=== PATIENT | male | born 1965 | race American Indian/Alaskan Native ===

== ENCOUNTER 2021-01-07 01:34 | Inpatient (IN) | payer MEDICAID ==
[~2021-01-07] VITALS: Ht 188 cm; Wt 122.0 kg
[~2021-01-07 01:34] MED LIST: ASPI-1 PO; FISH1CAP15 PO; HYDR-4353 PO; LORA1TAB PO; LOSA50TA3 PO; MULT-66 PO; NORT25CA5 PO; OMEP20TA23 PO; SIMV10TA98 PO
[2021-01-07] MEDS ORDERED: normal saline 1000ML IV soln IVB ONE (01:35)
[2021-01-07 02:16] LABS: BASOPHILS # (AUTO) 0.1 X10'3 (0-0.2); BASOPHILS % (AUTO) 0.4 % (0-1); EOSINOPHILS # (AUTO) 0.2 X10'3 (0-0.9); EOSINOPHILS % (AUTO) 1.2 % (0-6); HEMATOCRIT 42.3 % (42.0-52.0); HEMOGLOBIN 14.2 g/dl (14.0-17.9); LYMPHOCYTES # (AUTO) 2.6 X10'3 (1.1-4.8); LYMPHOCYTES % (AUTO) 16.9 % (21-51); MEAN CORPUSCULAR HEMOGLOBIN 29.2 PG (27.0-31.0); MEAN CORPUSCULAR HGB CONC 33.6 g/dL (33.0-36.5); MEAN CORPUSCULAR VOLUME 87.1 FL (78-98); MEAN PLATELET VOLUME 9.9 FL (7.4-10.4); MONOCYTES # (AUTO) 0.9 X10'3 (0-0.9); MONOCYTES % (AUTO) 5.9 % (2-12); NEUTROPHILS # (AUTO) 11.7 X10'3 (1.8-7.7); NEUTROPHILS % (AUTO) 75.6 % (42-75); PLATELET COUNT 373 X10'3 (140-440); RED BLOOD COUNT 4.86 X10'6 (4.70-6.10); RED CELL DISTRIBUTION WIDTH 14.5 % (11.5-14.5); WHITE BLOOD COUNT 15.4 X10'3 (4.5-11.0)
[2021-01-07] MEDS ORDERED: normal saline 1000ML IV soln IV ONE (02:30)
[2021-01-07] MEDS ORDERED: CefTRIAXone 2gm/D5W 50ml BAG 50 ML IV ONE (02:30)
[2021-01-07 02:34] LABS: ALANINE AMINOTRANSFERASE 29 U/L (12-78); ALBUMIN 3.4 G/DL (3.4-5.0); ALBUMIN/GLOBULIN RATIO 0.8 (1.1-1.5); ALKALINE PHOSPHATASE 90 IU/L (46-116); ANION GAP 12 (8-16); ASPARTATE AMINO TRANSFERASE 23 U/L (10-37); BILIRUBIN,TOTAL 0.6 MG/DL (0.1-1.0); BLOOD UREA NITROGEN 13 MG/DL (7-18); BUN/CREATININE RATIO 9.5 (5.4-32.0); CHLORIDE 100 MMOL/L (99-107); CKMB RELATIVE INDEX 1.8 RATIO (0-2.5); CREATINE KINASE 243 U/L (39-308); CREATININE 1.37 MG/DL (0.60-1.10); ETHANOL < 0.010 GM/DL (0.0-0.010); FERRITIN 62 NG/ML (26-388); GLUCOSE 126 MG/DL (70-104); LACTATE DEHYDROGENASE 222 U/L (85-227); SODIUM 140 MMOL/L (135-145); TOTAL CARBON DIOXIDE 28.3 MMOL/L (24-32); TOTAL PROTEIN 7.7 G/DL (6.4-8.2); TROPONIN I < 0.04 NG/ML (0.0-0.05); eGFR 54 ML/MIN
[2021-01-07 02:40] LABS: POTASSIUM 2.4 MMOL/L (3.5-5.1)
[2021-01-07 02:47] LABS: ABG HCO3 23.6 mmol/L (22.0-26.0); ABG OXYGEN SATURATION 95.3 % (94-97); ABG PCO2 (T) 35.4 mmHg (35.0-48.0); ABG PO2 (T) 74.1 mmHg (75.0-100.0); ALLEN'S TEST POSITIVE; FCOHb 1.4 % (0.0-3.9); PATIENT TEMPERATURE 36.8; TOTAL HEMOGLOBIN 14.6 G/dl (14.0-18.0)
[2021-01-07] MEDS ORDERED: potassium Cl 10 mEq/100mL bag IV ONE (02:50)
[2021-01-07] MEDS ORDERED: potassium Cl 20 mEq SR tablet PO ONE (02:50)
[2021-01-07] MEDS ORDERED: magnesium Cl slow-release 64mg tablet PO PRN (02:55)
[2021-01-07] MEDS ORDERED: potassium Cl 40MEQ/1/2NS 520ml 520 ML IV PRN ×2 (02:55)
[2021-01-07] MEDS ORDERED: ondansetron/PF 4mg/2ml inj IV PRN (02:55)
[2021-01-07] MEDS ORDERED: magnesium 4gm in 100ml NS 100 ML IV PRN (02:55)
[2021-01-07] MEDS ORDERED: mag hydrox/Alum hydrox/simeth 30ml oral suspension PO PRN (02:55)
[2021-01-07] MEDS ORDERED: magnesium 2GM in 50ml NS 50 ML IV PRN (02:55)
[2021-01-07] MEDS ORDERED: magnesium hydroxide 30ml (MOM) UD suspension PO PRN (02:55)
[2021-01-07] MEDS ORDERED: acetaminophen 325mg tablet PO PRN (02:55)
[2021-01-07] MEDS: magnesium 2GM in 50ml NS 50 ML IV SCH ×2 (03:00→06:48)
--- NOTE | 2021-01-07 03:00 | NUR ---
Pt continues to get up out of bed, is moving around like uncontrolable muscle movements. Pt is unreasonable and when asked to stay in bed for his own safety states "don't count on it".
--- NOTE | 2021-01-07 03:28 | NUR ---
Pt ripped out his IV, pulled off all cords and found in the middle of the room moving around irratically. Pt states he hurts and feels horrible but refusing to cooperate with care.
[2021-01-07] MEDS ORDERED: LORazepam 2 mg/ml vial IV ONE (03:35)
[2021-01-07] MEDS ORDERED: LORazepam 2 mg/ml vial IM ONE (04:30)
[2021-01-07] MEDS ORDERED: haloperidol lactate 5mg/ml inj IM ONE (04:30)
[2021-01-07] MEDS ORDERED: diphenhydrAMINE 50 mg/ml inj IM ONE (04:30)
--- NOTE | 2021-01-07 04:45 | NUR ---
Received report from ZAYRA Ruff. Awaiting patient arrival to the floor.
--- NOTE | 2021-01-07 05:00 | NUR ---
Patient arrived to the floor via gurney accompanied by SIZE MARKER Elzbieta. Placed in room 4008, close to nurses' station. Patient confused, oriented only to self, restless and twitchy, but snoring in bed. Vital signs stable at Temp 98.3 F, 95 HR, 20 RR, 97% room air, and 134/50 BP (left arm). Unable to do majority of physical assessment due to patient's condition; unable to answer questions. IVF infusing per MD order. Bed alarm on and audible. Will continue to monitor.
[2021-01-07 06:00] VITALS: BP 134/74
[2021-01-07] MEDS: normal saline 1000ml 1,000 ML IV SCH ×2 (06:48→17:44)
--- NOTE | 2021-01-07 06:58 | NUR ---
Patient in room [facility]TH[facility] 4008. I have received report from Ruth Ann IVERSON and had the opportunity to ask questions and assume patient care.
[2021-01-07] MEDS: K and/or MAG REPLACEMENT MC SCH ×2 (08:00→20:00)
[2021-01-07] MEDS ORDERED: HYDR-3973 PO (09:20)
[2021-01-07] MEDS ORDERED: CLON-330 PO (09:20)
[2021-01-07] MEDS ORDERED: DULO30CA52 PO (09:20)
[2021-01-07] MEDS ORDERED: TRAZ-251 PO (09:20)
[2021-01-07] MEDS ORDERED: ALBU8HFA IH (09:20)
[2021-01-07] MEDS ORDERED: SIMV10TA98 PO (09:20)
[2021-01-07] MEDS: vancomycin/NS 1 GM ADD-VANTAGE 250 ML IV SCH ×3 (09:43→20:21)
[2021-01-07 10:22] LABS: CLARITY,URINE CLEAR (Clear); COLOR,URINE YELLOW (Yellow); GLUCOSE, URINE NEGATIVE (Neg); KETONES,URINE NEGATIVE (Neg); LEUKOCYTE ESTERASE ,URINE NEGATIVE (Neg); NITRITES, URINE NEGATIVE (Neg); OCCULT BLOOD,URINE NEGATIVE (Neg); PROTEIN,URINE NEGATIVE (Neg); UROBILINOGEN,URINE 0.2 E.U/dL (0.2-1.0)
[2021-01-07 10:28] LABS: UA COLLECTION TYPE NON-SPECIFIED
[2021-01-07 10:39] LABS: URINE AMPHETAMINE SCREEN POSITIVE (Neg); URINE BARBITUATE SCREEN NEGATIVE (Neg); URINE BENZODIAZEPINES SCREEN NEGATIVE (Neg); URINE CANNABINOID SCREEN NEGATIVE (Neg); URINE COCAINE SCREEN NEGATIVE (Neg); URINE METHADONE SCREEN NEGATIVE (Neg); URINE OPIATE SCREEN POSITIVE (Neg); URINE PHENCYCLIDINE SCREEN NEGATIVE (Neg)
[2021-01-07 10:47] LABS: MAGNESIUM 2.3 MG/DL (1.5-2.4)
[2021-01-07 10:48] LABS: POTASSIUM 2.6 MMOL/L (3.5-5.1)
--- NOTE | 2021-01-07 10:56 | NUR ---
AT 1056 PT. WAS ABLE TO COMMUNICATE AND TAKE ORAL MEDS OF POTASSIUM CHLORIDE AL STUDENT NURSE
--- NOTE | 2021-01-07 11:06 | NUR ---
Page Sent PAGER ID: [phone] MESSAGE: MARK [id number] [address]IT[address] KEVIN...CRITICAL LAB POTASSIUM 2.6...REPLACING PER PROTOCOL
--- NOTE | 2021-01-07 12:30 | NUR ---
Patient keeps bending arm and medication was administered late. Medication did not scan at time of administration
[2021-01-07 15:00] VITALS: BP 170/79
[2021-01-07] MEDS ORDERED: Permethrin 1% 59ml topical rinse TP ONE (15:55)
[2021-01-07] MEDS ORDERED: albuterol 2.5 MG/3 ML nebule NEB PRN (15:55)
[2021-01-07] MEDS ORDERED: traZODone 50mg tablet PO PRN (15:55)
[2021-01-07] MEDS ORDERED: cloNIDine 0.1 mg tablet PO PRN (15:55)
[2021-01-07] MEDS ORDERED: Permethrin Cream 60gm TP ONE (15:55)
[2021-01-07] MEDS: potassium Cl 20 mEq SR tablet PO PRN ×2 (17:44→21:33)
[2021-01-07 18:00] VITALS: BP 121/61
--- NOTE | 2021-01-07 18:38 | NUR ---
Problems reprioritized. Patient report given, questions answered & plan of care reviewed with Shelly IVERSON.
[2021-01-07] MEDS: lactobacillus rhamnosus 10,000 MMU CELLS/CAPSULE PO SCH (20:21)
[2021-01-07] MEDS: HYDROcodone/acetaminophen 10/325mg tab PO PRN (20:22)
[2021-01-07 22:00] VITALS: BP 134/68
[2021-01-08] MEDS: potassium Cl 20 mEq SR tablet PO PRN ×4 (01:07→21:33)
[2021-01-08] MEDS: normal saline 1000ml 1,000 ML IV SCH ×3 (03:28→18:55)
[2021-01-08] MEDS: HYDROcodone/acetaminophen 10/325mg tab PO PRN (04:46)
[2021-01-08 06:00] VITALS: BP 120/67
--- NOTE | 2021-01-08 06:21 | NUR ---
Problems reprioritized. Patient report given, questions answered & plan of care reviewed with ZAYRA STARR.
--- NOTE | 2021-01-08 06:30 | NUR ---
Patient in room ORTH[facility] 4008. I have received report from Knadice IVERSON and had the opportunity to ask questions and assume patient care.
[2021-01-08] MEDS: CefTRIAXone/D5W-Rocephin 1gm 50 ML IV SCH (07:34)
[2021-01-08] MEDS: HYDROcodone/acetaminophen 5mg/325mg tablet PO PRN ×2 (07:35→21:34)
[2021-01-08] MEDS: duloxetine 30mg CAPSULE.DR PO SCH (07:36)
[2021-01-08] MEDS: atorvastatin 10mg tablet PO SCH (07:36)
[2021-01-08] MEDS: lactobacillus rhamnosus 10,000 MMU CELLS/CAPSULE PO SCH ×2 (07:36→21:33)
[2021-01-08] MEDS: K and/or MAG REPLACEMENT MC SCH ×2 (08:00→20:00)
[2021-01-08 08:08] LABS: BASOPHILS # (AUTO) 0.1 X10'3 (0-0.2); BASOPHILS % (AUTO) 1.4 % (0-1); EOSINOPHILS # (AUTO) 0.4 X10'3 (0-0.9); HEMATOCRIT 36.8 % (42.0-52.0); HEMOGLOBIN 12.5 g/dl (14.0-17.9); LYMPHOCYTES # (AUTO) 3.6 X10'3 (1.1-4.8); LYMPHOCYTES % (AUTO) 41.6 % (21-51); MEAN CORPUSCULAR HEMOGLOBIN 29.5 PG (27.0-31.0); MEAN CORPUSCULAR HGB CONC 33.9 g/dL (33.0-36.5); MEAN CORPUSCULAR VOLUME 86.9 FL (78-98); MEAN PLATELET VOLUME 9.8 FL (7.4-10.4); MONOCYTES # (AUTO) 0.6 X10'3 (0-0.9); MONOCYTES % (AUTO) 7.5 % (2-12); NEUTROPHILS # (AUTO) 3.8 X10'3 (1.8-7.7); NEUTROPHILS % (AUTO) 44.5 % (42-75); PLATELET COUNT 341 X10'3 (140-440); RED BLOOD COUNT 4.24 X10'6 (4.70-6.10); RED CELL DISTRIBUTION WIDTH 14.5 % (11.5-14.5); WHITE BLOOD COUNT 8.6 X10'3 (4.5-11.0)
[2021-01-08 08:16] LABS: ALANINE AMINOTRANSFERASE 23 U/L (12-78); ALBUMIN 2.4 G/DL (3.4-5.0); ALBUMIN/GLOBULIN RATIO 0.7 (1.1-1.5); ALKALINE PHOSPHATASE 68 IU/L (46-116); ANION GAP 9 (8-16); ASPARTATE AMINO TRANSFERASE 17 U/L (10-37); BILIRUBIN,TOTAL 0.3 MG/DL (0.1-1.0); BLOOD UREA NITROGEN 7 MG/DL (7-18); BUN/CREATININE RATIO 13.5 (5.4-32.0); CALCIUM 7.9 MG/DL (8.5-10.1); CHLORIDE 110 MMOL/L (99-107); CREATININE 0.52 MG/DL (0.60-1.10); GLUCOSE 99 MG/DL (70-104); MAGNESIUM 1.7 MG/DL (1.5-2.4); SODIUM 145 MMOL/L (135-145); TOTAL CARBON DIOXIDE 25.9 MMOL/L (24-32); TOTAL PROTEIN 5.8 G/DL (6.4-8.2); eGFR > 90 ML/MIN
[2021-01-08 08:19] LABS: POTASSIUM 2.9 MMOL/L (3.5-5.1)
--- NOTE | 2021-01-08 08:25 | NUR ---
sent a page to hospitalist letting them know that pt k is 2.9, there is a k replacement ordered, continue to monitor
[2021-01-08] MEDS: vancomycin/NS 1 GM ADD-VANTAGE 250 ML IV SCH (08:57)
[2021-01-08] MEDS ORDERED: Ivermectin 3mg tablet PO SCH (09:00)
[2021-01-08 10:00] VITALS: BP 142/89
--- NOTE | 2021-01-08 16:16 | NUR ---
called Pharmacy regarding vanco trough, pharmacy stated trough will be drawn tomorrow
[2021-01-08] MEDS: vancomycin/NS 1 GM ADD-VANTAGE 250 ML X 1 DOSE IV SCH (16:51)
[2021-01-08 18:00] VITALS: BP 121/62
--- NOTE | 2021-01-08 18:41 | NUR ---
Problems reprioritized. Patient report given, questions answered & plan of care reviewed with Nadine IVERSON.
--- NOTE | 2021-01-08 18:45 | NUR ---
Patient in room ORTH[facility] 4008. I have received report from Bianca Sandhu and had the opportunity to ask questions and assume patient care.
[2021-01-08 23:00] VITALS: BP 126/68
[2021-01-09] MEDS: vancomycin/NS 1 GM ADD-VANTAGE 250 ML X 1 DOSE IV SCH ×2 (01:31→09:42)
[2021-01-09] MEDS: normal saline 1000ml 1,000 ML IV SCH ×2 (04:55→09:19)
[2021-01-09 06:00] VITALS: BP 149/87
--- NOTE | 2021-01-09 06:15 | NUR ---
Problems reprioritized. Patient report given, questions answered & plan of care reviewed with Bianca IVERSON.
--- NOTE | 2021-01-09 06:42 | NUR ---
Patient in room ORTH[facility] 4008. I have received report from Nadine IVERSON and had the opportunity to ask questions and assume patient care.
[2021-01-09] MEDS: atorvastatin 10mg tablet PO SCH (08:00)
[2021-01-09] MEDS: K and/or MAG REPLACEMENT MC SCH ×2 (08:00→20:41)
[2021-01-09] MEDS ORDERED: VANCOMYCIN LEVEL IV ONE (08:30)
[2021-01-09] MEDS: lactobacillus rhamnosus 10,000 MMU CELLS/CAPSULE PO SCH ×2 (09:03→20:46)
[2021-01-09] MEDS: duloxetine 30mg CAPSULE.DR PO SCH (09:04)
[2021-01-09] MEDS: CefTRIAXone/D5W-Rocephin 1gm 50 ML IV SCH (09:05)
[2021-01-09 09:07] LABS: BASOPHILS # (AUTO) 0.1 X10'3 (0-0.2); BASOPHILS % (AUTO) 1.4 % (0-1); EOSINOPHILS # (AUTO) 0.3 X10'3 (0-0.9); EOSINOPHILS % (AUTO) 3.4 % (0-6); HEMOGLOBIN 12.7 g/dl (14.0-17.9); LYMPHOCYTES # (AUTO) 2.6 X10'3 (1.1-4.8); LYMPHOCYTES % (AUTO) 25.9 % (21-51); MEAN CORPUSCULAR HEMOGLOBIN 29.2 PG (27.0-31.0); MEAN CORPUSCULAR HGB CONC 33.5 g/dL (33.0-36.5); MEAN CORPUSCULAR VOLUME 87.3 FL (78-98); MONOCYTES # (AUTO) 0.6 X10'3 (0-0.9); MONOCYTES % (AUTO) 6.3 % (2-12); NEUTROPHILS # (AUTO) 6.2 X10'3 (1.8-7.7); PLATELET COUNT 330 X10'3 (140-440); RED BLOOD COUNT 4.35 X10'6 (4.70-6.10); RED CELL DISTRIBUTION WIDTH 15.3 % (11.5-14.5); WHITE BLOOD COUNT 9.9 X10'3 (4.5-11.0)
[2021-01-09 09:14] LABS: ALANINE AMINOTRANSFERASE 21 U/L (12-78); ALBUMIN 2.5 G/DL (3.4-5.0); ALBUMIN/GLOBULIN RATIO 0.7 (1.1-1.5); ALKALINE PHOSPHATASE 69 IU/L (46-116); ANION GAP 9 (8-16); ASPARTATE AMINO TRANSFERASE 18 U/L (10-37); BILIRUBIN,TOTAL 0.3 MG/DL (0.1-1.0); BLOOD UREA NITROGEN 4 MG/DL (7-18); BUN/CREATININE RATIO 6.9 (5.4-32.0); CALCIUM 7.8 MG/DL (8.5-10.1); CHLORIDE 111 MMOL/L (99-107); CREATININE 0.58 MG/DL (0.60-1.10); GLUCOSE 131 MG/DL (70-104); MAGNESIUM 1.7 MG/DL (1.5-2.4); SODIUM 147 MMOL/L (135-145); TOTAL PROTEIN 5.9 G/DL (6.4-8.2); VANCOMYCIN,TROUGH 12.1 UG/ML (6.0-14.0); eGFR > 90 ML/MIN
[2021-01-09 09:28] LABS: POTASSIUM 2.8 MMOL/L (3.5-5.1)
--- NOTE | 2021-01-09 09:31 | NUR ---
PAGER ID: [phone] MESSAGE: Bianca IVERSON [phone] RE: Maxx Paige [id number]. Critical potassium 2.8. Will replace per pro. Thank you
[2021-01-09] MEDS: potassium Cl 20 mEq SR tablet PO PRN ×4 (09:41→20:46)
[2021-01-09] MEDS: HYDROcodone/acetaminophen 5mg/325mg tablet PO PRN (09:42)
[2021-01-09 10:00] VITALS: BP 136/78
[2021-01-09] MEDS: VANCOmycin 1250MG/NS 250ml Bag 250 ML IV SCH (17:23)
[2021-01-09] MEDS: HYDROcodone/acetaminophen 10/325mg tab PO PRN (17:28)
[2021-01-09 18:00] VITALS: BP 144/82
--- NOTE | 2021-01-09 18:30 | NUR ---
Patient in room ORTH[facility] 4008. I have received report from Bianca IVERSON and had the opportunity to ask questions and assume patient care.
--- NOTE | 2021-01-09 18:48 | NUR ---
Problems reprioritized. Patient report given, questions answered & plan of care reviewed with Nat IVERSON.
[2021-01-09 22:00] VITALS: BP 147/80
[2021-01-10] MEDS: potassium Cl 20 mEq SR tablet PO PRN ×4 (00:27→14:19)
[2021-01-10] MEDS: Potassium Cl inj 20 MEQ in dextrose 5%-water 1,000 ML IV SCH ×3 (00:28→14:35)
[2021-01-10] MEDS: VANCOmycin 1250MG/NS 250ml Bag 250 ML IV SCH ×2 (00:34→09:58)
[2021-01-10] MEDS ORDERED: magnesium Cl slow-release 64mg tablet PO PRN (05:35)
[2021-01-10] MEDS ORDERED: magnesium 4gm in 100ml NS 100 ML IV PRN (05:35)
[2021-01-10] MEDS ORDERED: potassium Cl 20 mEq SR tablet PO PRN (05:35)
[2021-01-10] MEDS ORDERED: potassium Cl 40MEQ/1/2NS 520ml 520 ML IV PRN (05:35)
[2021-01-10] MEDS: HYDROcodone/acetaminophen 10/325mg tab PO PRN (05:50)
[2021-01-10 06:00] VITALS: BP_SYST 145; BP_SYST 148; BP_DIAS 80
--- NOTE | 2021-01-10 06:27 | NUR ---
Problems reprioritized. Patient report given, questions answered & plan of care reviewed with Bianca IVERSON.
--- NOTE | 2021-01-10 06:36 | NUR ---
Patient in room ORTH[facility] 4008. I have received report from Nat IVERSON and had the opportunity to ask questions and assume patient care.
[2021-01-10] MEDS: duloxetine 30mg CAPSULE.DR PO SCH (07:14)
[2021-01-10] MEDS: lactobacillus rhamnosus 10,000 MMU CELLS/CAPSULE PO SCH (07:15)
[2021-01-10] MEDS: atorvastatin 10mg tablet PO SCH (07:15)
[2021-01-10] MEDS: CefTRIAXone/D5W-Rocephin 1gm 50 ML IV SCH (07:16)
[2021-01-10] MEDS: K and/or MAG REPLACEMENT MC SCH (08:00)
[2021-01-10 09:27] LABS: BASOPHILS # (AUTO) 0.2 X10'3 (0-0.2); BASOPHILS % (AUTO) 1.5 % (0-1); EOSINOPHILS # (AUTO) 0.4 X10'3 (0-0.9); EOSINOPHILS % (AUTO) 3.2 % (0-6); HEMATOCRIT 37.8 % (42.0-52.0); HEMOGLOBIN 12.7 g/dl (14.0-17.9); LYMPHOCYTES # (AUTO) 2.5 X10'3 (1.1-4.8); LYMPHOCYTES % (AUTO) 22.2 % (21-51); MEAN CORPUSCULAR HEMOGLOBIN 29.5 PG (27.0-31.0); MEAN CORPUSCULAR HGB CONC 33.6 g/dL (33.0-36.5); MEAN CORPUSCULAR VOLUME 87.8 FL (78-98); MEAN PLATELET VOLUME 10.1 FL (7.4-10.4); MONOCYTES # (AUTO) 0.6 X10'3 (0-0.9); MONOCYTES % (AUTO) 5.5 % (2-12); NEUTROPHILS # (AUTO) 7.5 X10'3 (1.8-7.7); NEUTROPHILS % (AUTO) 67.6 % (42-75); PLATELET COUNT 343 X10'3 (140-440); RED CELL DISTRIBUTION WIDTH 14.8 % (11.5-14.5); WHITE BLOOD COUNT 11.1 X10'3 (4.5-11.0)
[2021-01-10 09:40] LABS: ALANINE AMINOTRANSFERASE 21 U/L (12-78); ALBUMIN 2.5 G/DL (3.4-5.0); ALBUMIN/GLOBULIN RATIO 0.7 (1.1-1.5); ALKALINE PHOSPHATASE 68 IU/L (46-116); ANION GAP 10 (8-16); ASPARTATE AMINO TRANSFERASE 18 U/L (10-37); BILIRUBIN,TOTAL 0.2 MG/DL (0.1-1.0); BLOOD UREA NITROGEN 3 MG/DL (7-18); CHLORIDE 110 MMOL/L (99-107); GLUCOSE 149 MG/DL (70-104); MAGNESIUM 1.6 MG/DL (1.5-2.4); POTASSIUM 3.3 MMOL/L (3.5-5.1); SODIUM 146 MMOL/L (135-145); TOTAL CARBON DIOXIDE 26.1 MMOL/L (24-32); TOTAL PROTEIN 6.2 G/DL (6.4-8.2); eGFR > 90 ML/MIN
--- NOTE | 2021-01-10 11:51 | NUR ---
Initial: Pt admit for AMS and weakness with lactic acidosis and hypokalemia. Noted that serum Na is elevated at 146. Pt receiving routine KCl/dextrose with additional PRN KCl. Pt on a regular diet and eating well documented with average 75-100% PO intake. LBM 01/10 with PRN bowel care available. No documented edema or wounds. No nutrition intervention warranted at this time. Will continue to follow. Recommendations: 1) Continue regular diet 2) Monitor need for additional protein for satiety 3) Bowel care per rx 4) Scaled weights per rx Addendum: 01/10/21 at [address] Amended: Links added.
--- NOTE | 2021-01-10 12:07 | NUR ---
Pt is more awake today, pt is watching televison. Pt has ambulated to bathroom stand by assist. Pts gait is steady, pts only complaint is mild dizziness when he first stands. Pt educated on using call light and asking for assistance when needed. Will continue to monitor patient
[2021-01-10] MEDS: HYDROcodone/acetaminophen 5mg/325mg tablet PO PRN (13:23)
[2021-01-10] MEDS ORDERED: VANCOMYCIN LEVEL IV ONE (16:30)
--- NOTE | 2021-01-10 17:06 | NUR ---
Pt discharged in private vehicle with fiance. IV removed no complications. Belongings sent with patient. All questions reviewed with patient and answered. Pt discharged in stable conditon.
== END 2021-01-10 17:00 | disposition home or self-care (01) | DRG 720 ==
LOC: ER 01:35 → ED HOLD 02:51 → ORTHO 4S 05:00
PROVIDERS: ADMIT Family Medicine; ATTEND Family Medicine
DX: A41.9 Sepsis, unspecified organism (principal); G93.41 Metabolic encephalopathy; E87.2 Acidosis; E87.0 Hyperosmolality and hypernatremia; B86 Scabies; E78.00 Pure hypercholesterolemia, unspecified; E78.5 Hyperlipidemia, unspecified; Z20.822 Contact with and (suspected) exposure to COVID-19; E86.0 Dehydration; E87.6 Hypokalemia; I10 Essential (primary) hypertension; R62.7 Adult failure to thrive; T78.8XXA Other adverse effects, not elsewhere classified, initial encounter; X58.XXXA Exposure to other specified factors, initial encounter; Z87.891 Personal history of nicotine dependence; I25.2 Old myocardial infarction; Z90.81 Acquired absence of spleen; Z88.0 Allergy status to penicillin; Z88.8 Allergy status to other drugs, medicaments and biological substances
CPT/HCPCS: 36415; 36600; 70450; 71045; 80053; 80202; 80305; 80320; 81003; 82140; 82550; 82553; 82728; 82803; 83605; 83615; 83735; 84132; 84145; 84484; 85018; 85025; 85384; 86140; 87040; 87081; 87635; 93005; 94760; 96374; 96375; 97116; 97161; 97530; 99285; C9803; G0378; J0696; J2060; J3370; J3475; J3480; J7030; J7070